=== PATIENT | female | born 1995 | race Caucasian/White ===

== ENCOUNTER 2017-10-15 15:30 | Emergency (ER) | payer OTHER ==
[2017-10-15 17:16] VITALS: BP 109/78
--- NOTE | 2017-10-15 18:00 | UC ---
Throat Pain/Nasal Randy HPI - HPI Summary HPI Summary: 22 year old female with cough. ONSET 4 NIGHTS AGO WITH . SINUS CONGESTION. SINUS DRAINAGE.SORE THROAT. COUGHING ALL THE TIME. SOB ON EXERTION. HEADACHE. FEELS FEVERISH AT TIMES. STATES PRONE TO BRONCHITIS.. No high temperature taken. She is worried about the flu. Mom worried that with her cough that it could pneumonia. Pt from . Has math test tomorrow and feels too sick to take the test. [ End ] - History of Current Complaint Chief Complaint: UCRespiratory Stated Complaint: SINUSES, ST, WEAK Time Seen by Provider: 10/15/17 17:36 Hx Obtained From: Patient Hx Last Menstrual Period: 10/13/17 Onset/Duration: Gradual Onset Pain Intensity: 7 - Allergies/Home Medications Allergies/Adverse Reactions: Allergies Allergy/AdvReac Type Severity Reaction Status Date / Time Cefsharda [From Replaced By [facility]] Allergy Hives Verified 10/15/17 17:06 Home Medications: Home Medications Acetaminophen TAB* [Tylenol TAB*] 650 mg PO Q4H PRN 10/15/17 [History Confirmed 10/15/17] Ibuprofen TAB* [Advil TAB*] 200 mg PO PRN 10/15/17 [History] PMH/Surg Hx/FS Hx/Imm Hx Previously Healthy: Yes Respiratory History: Bronchitis - Surgical History Surgical History: Yes Surgery Procedure, Year, and Place: keloids removed 2015. RIGHT ANKLE SUIRGERY 3 TIMES - Family History Known Family History: Positive: Hypertension, Diabetes - Social History Lives: Dormitory/Roommates - [facility] Major Alcohol Use: Occasionally Substance Use Type: None Smoking Status (MU): Never Smoked Tobacco Review of Systems Constitutional: Fatigue ENT: Sore Throat, Ear Ache, Nasal Discharge, Sinus Congestion, Sinus Pain/ Tenderness Respiratory: Cough Is Patient Immunocompromised?: No All Other Systems Reviewed And Are Negative: Yes Physical Exam Triage Information Reviewed: Yes Appearance: Well-Appearing, No Pain Distress, Well-Nourished Vital Signs: Initial Vital Signs Temp 98.1 F 10/15/17 17:08 Pulse 97 10/15/17 17:08 Resp 20 10/15/17 17:08 BP 109/78 10/15/17 17:08 Pulse Ox 100 10/15/17 17:08 Vital Signs Reviewed: Yes Eye Exam: Normal ENT Exam: Normal Dental Exam: Normal Neck exam: Normal Neck: Positive: 1 Respiratory Exam: Normal Respiratory: Positive: Chest non-tender, Lungs clear, Normal breath sounds, No respiratory distress Cardiovascular Exam: Normal Musculoskeletal Exam: Normal Neurological Exam: Normal Psychological Exam: Normal Skin Exam: Normal Throat Pain/Nasal Course/Dx - Course Course Of Treatment: Lungs CTA . VSS. No indication for xray. Pt requesting flu swab despite having initial URI Sx starting > 3 days ago and medication not indicated. Neg flu - Differential Dx/Diagnosis Differential Diagnosis/HQI/PQRI: Otitis Media, Pharyngitis, Sinusitis, Tonsillitis, URI Provider Diagnoses: URI Discharge - Discharge Plan Condition: Good Disposition: HOME Prescriptions: Benzonatate CAP* [Tessalon 100 MG CAP*] 100 mg PO TID #20 cap Patient Education Materials: Upper Respiratory Infection (ED) Forms: *School Release Referrals: Non Staff,Doctor [Primary Care Provider] - If Needed Additional Instructions: You had a negative flu test today. Please return if you have any concern. Feel better.
== END 2017-10-15 18:50 | disposition home or self-care (01) ==
LOC: UCCORT 15:30
DX: J06.9 Acute upper respiratory infection, unspecified (principal)
CPT/HCPCS: 87502; 99212; G0463

== ENCOUNTER 2018-05-11 18:27 | Emergency (ER) | payer OTHER ==
[2018-05-11 19:34] VITALS: BP 118/75
--- NOTE | 2018-05-11 19:53 | UC ---
Nausea/Vomiting/Diarrhea HPI - HPI Summary HPI Summary: 22-year-old woman comes to the clinic with a complaint of one week of diarrhea. She has a loose stool each morning. She has one bowel movement per day. No fevers no chills no abdominal pain. Today the diarrhea was green which made her concerned and she came to the clinic. No blood in the stool. He has not been traveling recently concerned of any environmental cause. She's also had some itching vaginal discharge that was treated by her [employer] at home as a yeast infection. It improved with medication but has returned. - History of Current Complaint Chief Complaint: UCGI Stated Complaint: FEVER/DIARRHEA/SORE THROAT Time Seen by Provider: 05/11/18 19:29 Hx Last Menstrual Period: 04/27/18 onBCP Pain Intensity: 0 - Allergies/Home Medications Allergies/Adverse Reactions: Allergies Allergy/AdvReac Type Severity Reaction Status Date / Time cefaclor [From Ceclor] Allergy Intermediate Hives Verified 05/11/18 19:34 PMH/Surg Hx/FS Hx/Imm Hx Previously Healthy: Yes - Surgical History Surgical History: Yes Surgery Procedure, Year, and Place: keloids removed 2015. RIGHT ANKLE SUIRGERY 3 TIMES - Family History Known Family History: Positive: Hypertension, Diabetes - Social History Alcohol Use: None Substance Use Type: None Smoking Status (MU): Never Smoked Tobacco Review of Systems Constitutional: Negative Skin: Negative, Rash Cardiovascular: Negative Gastrointestinal: Diarrhea Genitourinary: Vaginal/Penile Discharge Motor: Negative Neurovascular: Negative Musculoskeletal: Negative Neurological: Negative Psychological: Negative Is Patient Immunocompromised?: No All Other Systems Reviewed And Are Negative: Yes Physical Exam Triage Information Reviewed: Yes Appearance: Well-Appearing, No Pain Distress, Well-Nourished Vital Signs: Initial Vital Signs Temp 98.1 F 05/11/18 19:29 Pulse 100 05/11/18 19:29 Resp 17 05/11/18 19:29 BP 118/75 05/11/18 19:29 Pulse Ox 100 05/11/18 19:29 Vital Signs Reviewed: Yes Eye Exam: Normal ENT Exam: Normal ENT: Positive: Normal ENT inspection, Pharynx normal Neck exam: Normal Neck: Positive: Supple Respiratory: Positive: Lungs clear, Normal breath sounds, No respiratory distress Cardiovascular: Positive: RRR Abdomen Description: Positive: Nontender, No Organomegaly, Soft Bowel Sounds: Positive: Present Musculoskeletal Exam: Normal Musculoskeletal: Positive: Strength Intact Neurological Exam: Normal Neurological: Positive: Alert Psychological Exam: Normal Skin Exam: Normal Naus/Vom/Diarrhea Course/Dx - Course Course Of Treatment: Discussed the possible causes of diarrhea. No fevers there 's no blood in the stools is no abdominal pain. Stool sample kit was sent home with the patient the bring him back here. The yeast vaginitis that improved at home with treatment. We discussed a pelvic exam here, the patient preferred to have it done with her own [employer] or at the [facility] with a female provider. At this time we'll treat with Diflucan. - Differential Dx/Diagnosis Provider Diagnoses: DIARRHEA. YEAST VAGINITIS Condition At Discharge: Stable Discharge - Sign-Out/Discharge Documenting (check all that apply): Patient Departure All imaging exams completed and their final reports reviewed: No Studies - Discharge Plan Condition: Stable Disposition: HOME Prescriptions: Fluconazole [Diflucan 150 MG (NF)] 150 mg PO ONCE #1 tab Patient Education Materials: Yeast Infection (ED), Acute Diarrhea (ED) Referrals: [facility] [Outside] Additional Instructions: FOLLOW UP WITH [facility]. RETURN THE STOOL SAMPLE HERE. GET RECHECKED FOR ANY WORSENING OF YOUR CONDITION; PAIN, FEVER, YOU FEEL ILL OR QUESTIONS OR CONCERNS. - Billing Disposition and Condition Condition: STABLE Disposition: Home - Attestation Statements Document Initiated by Scribe: No
== END 2018-05-11 20:02 | disposition home or self-care (01) ==
LOC: UCCORT 18:27
DX: R19.7 Diarrhea, unspecified (principal); B37.3 Candidiasis of vulva and vagina; Z88.1 Allergy status to other antibiotic agents
CPT/HCPCS: 99212; G0463